=== PATIENT | female | born 1975 | race Caucasian/White ===

== ENCOUNTER 2020-06-01 14:40 | Emergency (ER) | payer OTHER, SELFPAY ==
[2020-06-01 14:47] VITALS: BP 142/89; PULSE 89; RESP 20; TEMP 36.8; O2SAT 100
[2020-06-01 16:35] VITALS: BP 133/71; PULSE 80; RESP 18; O2SAT 99
--- NOTE | 2020-06-01 16:49 | ED.GENADULT ---
HPI - General Adult General Chief complaint: Headache <Sheldon Shipley PA-C - Last Filed: 06/01/20 16:55> Stated complaint: headache, earache <Sheldon Shipley PA-C - Last Filed: 06/01/20 16:55> Time Seen by Provider: 06/01/20 16:00 <Sheldon Shipley PA-C - Last Filed: 06/01/20 16:55> Source: patient <Sheldon Shipley PA-C - Last Filed: 06/01/20 16:55> Mode of arrival: ambulatory <Sheldon Shipley PA-C - Last Filed: 06/01/20 16:55> Limitations: no limitations <Sheldon Shipley PA-C - Last Filed: 06/01/20 16:55> History of Present Illness HPI narrative: Patient is a 44-year-old female who presents with 2 days duration of upper respiratory symptoms with congestion rhinorrhea ear pain nonproductive cough has not taken anything for her symptoms no subjective fever denies dyspnea has history of tobacco abuse presents in no distress has not taken anything for her symptoms <Sheldon Shipley PA-C - Last Filed: 06/01/20 16:55> Related Data Allergies/adverse reactions: Allergies Allergy/AdvReac Type Severity Reaction Status Date / Time erythromycin base Allergy Severe Hives / Unverified 02/25/09 13:17 Red Face Penicillins Allergy Severe Hives / Unverified 02/25/09 13:17 Red Face azithromycin Allergy Unknown HIVES/RED Unverified 02/25/09 13:17 FACE Cane Sugar Allergy Unknown Uncoded 07/15/09 14:38 <Sheldon Shipley PA-C - Last Filed: 06/01/20 16:55> Review of Systems Review of Systems: All systems reviewed & are unremarkable except as noted in HPI and below <Sheldon Shipley PA-C - Last Filed: 06/01/20 16:55> PMFSH Social History Social History: Social History (Updated 06/01/20 @ 16:50 by Sheldon Shipley PA-C) Smoking status: Current every day smoker <Sheldon Shipley PA-C - Last Filed: 06/01/20 16:55> Exam Narrative: Exam Narrative: GENERAL: Well-appearing, well-nourished, and in no acute distress. HEAD: Normocephalic, atraumatic. EYES: PERRLA and EOMI. ENT: Nares clear, no rhinorrhea or epistaxis. Mucous membranes moist. Oropharynx without tonsillar hypertrophy exudate or other lesions. Bilateral TMs pearly cooper with fluid levels NECK: Supple. No adenopathy or masses. CHEST: Clear to auscultation. No respiratory distress. No wheezes rales or rhonchi HEART: Regular rate and rhythm. No murmur heard. EXTREMITIES: Normal range of motion. No edema. SKIN: Warm, dry, no rash. NEURO: No focal deficits. Alert and oriented x3. Cranial nerves II through XII grossly intact PSYCH: Normal mood and affect. <TOÑO Schreiber Last Filed: 06/01/20 16:55> Course Course Emergency Course: Patient in the room aware of case findings treatment plan and diagnosis agreeing to follow-up with primary care trusted for strep throat and COVID <TOÑO Schreiber Last Filed: 06/01/20 16:55> Vital Signs Vital signs: Vital Signs Temperature 98.2 F 06/01/20 14:47 Pulse Rate 89 06/01/20 14:47 Respiratory Rate 20 06/01/20 14:47 Blood Pressure 142/89 H 06/01/20 14:47 Pulse Oximetry 100 06/01/20 14:47 Temperature 98.2 F 06/01/20 14:47 Pulse Rate 80 06/01/20 16:35 Respiratory Rate 18 06/01/20 16:35 Blood Pressure 133/71 06/01/20 16:35 Pulse Oximetry 99 06/01/20 16:35 <TOÑO Schreiber Last Filed: 06/01/20 16:55> Vital Signs Temperature 98.2 F 06/01/20 14:47 Pulse Rate 89 06/01/20 14:47 Respiratory Rate 20 06/01/20 14:47 Blood Pressure 142/89 H 06/01/20 14:47 Pulse Oximetry 100 06/01/20 14:47 Temperature 98.2 F 06/01/20 14:47 Pulse Rate 80 06/01/20 16:35 Respiratory Rate 18 06/01/20 16:35 Blood Pressure 133/71 06/01/20 16:35 Pulse Oximetry 99 06/01/20 16:35 <Audra Iglesias MD - Last Filed: 06/01/20 17:26> Medical Decision Making MDM Narrative Medical decision making narrative: Patient with upper respiratory infection afebrile no
[2020-06-01 17:32] VITALS: BP 128/77; PULSE 88; RESP 20; TEMP 36.6; O2SAT 99
[2020-06-02 15:06] LABS: SARS-CoV-2 RNA PCR Negative
== END 2020-06-01 17:33 | disposition home or self-care (01) ==
PROVIDERS: Emergency Medicine Emergency Medical Services; Emergency Provider General Practice; PCP Nurse Practitioner Family
DX: J06.9 Acute upper respiratory infection, unspecified (principal); Z20.828 Contact with and (suspected) exposure to other viral communicable diseases; F17.200 Nicotine dependence, unspecified, uncomplicated
CPT/HCPCS: 87081; 87635; 87880; 99283; C9803; U0003